=== PATIENT | male | born 1965 | race Caucasian/White ===

== ENCOUNTER → 2020-07-25 08:03 | Outpatient (CLI) | payer BC ==
[~2020-07-25 08:03] MED LIST: FISH OIL 1,0001 CA1 PO; LOPRESSOR25 MG PO
== END | disposition home or self-care (01) ==
LOC: D.HCCECHO 08:03
PROVIDERS: ATTEND Internal Medicine Cardiovascular Disease
DX: R00.2 Palpitations (principal)